=== PATIENT | male | born 1955 | race Caucasian/White ===

== ENCOUNTER 2019-10-18 08:42 | Day surgery (SDC) | payer BC ==
[~2019-10-18 08:42] MED LIST: ACETAMINOPHEN 1,000 MG/100 ML BTL IVPB ONE; CEFAZOLIN 1 Gram 1 GM/50 ML BAG IVPB ONE; CEFAZOLIN 2 Gram 2 GM/50 ML BAG IVPB ONE
[2019-10-18] MEDS ORDERED: ONDANSETRON HCL IV 4 MG/2 ML VIAL IVP ONE (08:43)
[2019-10-18] MEDS ORDERED: PROPOFOL 10 MG/ML VIAL IV ONE (08:43)
[2019-10-18] MEDS ORDERED: FENTANYL PF 100MCG/2ML VIAL IV ONE (08:43)
[2019-10-18] MEDS ORDERED: DEXAMETHASONE 4 MG/ML 1ML VIAL IVP ONE (08:43)
[2019-10-18] MEDS ORDERED: SEVOFLURANE 250 ML INH ONE (08:43)
[2019-10-18] MEDS ORDERED: MIDAZOLAM HCL 2MG/2ML VIAL IV ONE (08:43)
[2019-10-18] MEDS ORDERED: LIDOCAINE 2% MDV (20MG/ML) 20ML VIAL IV ONE (08:43)
[2019-10-18] MEDS ORDERED: RINGERS SOLUTION,LACTATED 1,000 ML IV ONE (09:20)
--- NOTE | 2019-10-18 13:16 | Operative Note ---
DATE OF SURGERY: 10/18/2019 SURGEON: Lv Gomes D.O. REFERRING PHYSICIAN: Sandy Storm D.O. PREOPERATIVE DIAGNOSIS: GANGLION OF THE RIGHT INDEX FINGER. POSTOPERATIVE DIAGNOSIS: GANGLION OF THE RIGHT INDEX FINGER. OPERATION: EXCISION GANGLION RIGHT INDEX FINGER (1.3 CM) USING 3.5 LOUPE MAGNIFICATION. DESCRIPTION: This 64-year-old male was taken to the Operating Room and placed in the supine position on the operating room table. A general anesthetic was administered, the right upper extremity was elevated, prepped with Hibiclens and draped in the usual sterile fashion. It was exsanguinated and the tourniquet was inflated to 250 mmHg. An incision was made along the dorsal radial surface of the right index finger approximately 2 cm in length dissecting down through the skin and subcutaneous tissue. Hemostasis was obtained with the electrocautery. The dome of the cyst was easily identified and blunt and sharp dissection was used to excise the cyst and it was completely excised and removed. It appeared to be emanating from the tenosynovium. The extensor mechanism was identified, the ganglion cyst partially laid on top of the extensor mechanism, but it was not disturbed as this was easily elevated off of the extensor rollins. The wound was irrigated and hemostasis obtained with the electrocautery. The wound was closed with 4-0 Vicryl and subcutaneous tissue and the skin was closed with 4-0 nylon suture. Sterile dressings were applied and the patient was taken to the Recovery Room in satisfactory condition. GROSS PATHOLOGY: This patient demonstrated a ganglion cyst, there was suspicion that this might be a giant cell tumor, but there was no evidence of a giant cell tumor present. This was a typical ganglion cyst full of the clear gelatinous type fluid. The size being to approximately 1.3 cm. JOB NUMBER: [id number] MTDD
== END 2019-10-18 11:53 | disposition home or self-care (01) ==
LOC: SUR 08:42
PROVIDERS: ATTEND Orthopaedic Surgery
DX: M67.441 Ganglion, right hand (principal); E11.9 Type 2 diabetes mellitus without complications; E66.9 Obesity, unspecified; G47.33 Obstructive sleep apnea (adult) (pediatric)
CPT/HCPCS: 26160; 01810; 36416; 82948; C1751; J2405; J3010; J0690; J7120